=== PATIENT | female | born 2000 | race Caucasian/White ===

== ENCOUNTER 2024-04-30 19:28 | Emergency (ER) | payer OTHER, SELFPAY ==
[2024-04-30 19:32] VITALS: BP 143/93; BMI 28.4
[2024-04-30 19:55] LABS: % Basophils 0.3 % (0-2); % Eosinophils 0.2 % (0-6); % Immature Granulocytes 0.3 % (0-0.5); % Lymphocytes 14.1 % (20.5-51.1); % Monocytes 3.7 % (1.7-9.3); % Neutrophils 81.4 % (42.2-75.2); Absolute Lymphocytes 1.4 10^3/uL (1.2-3.4); Absolute Monocytes 0.4 10^3/uL (0.1-0.6); Absolute Neutrophils 8.3 10^3/uL (1.4-6.5); Hematocrit 34.1 % (37.0-47.0); Mean Corp Hgb Conc. 35.2 g/dL (33.0-37.0); Mean Corpuscular Hgb 29.9 pg (27.0-31.0); Mean Platelet Volume 9.7 fL (7.4-10.4); Nucleated Red Blood Cells % 0 %; Platelet Count 336 10^3/uL (130-400); Red Blood Cell Count 4.01 10^6/uL (4.20-5.40); Red Cell Dist. Width 12.8 % (11.5-14.5); White Blood Cell Count 10.2 10^3/uL (4.8-10.8)
[2024-04-30 20:19] VITALS: BMI 29.3
[2024-04-30 20:20] LABS: Troponin I < 0.012 ng/ml
[2024-04-30 20:39] LABS: HCG, Serum Qualitative Screen Negative
[2024-04-30 20:43] LABS: ALT (SGPT) < 10 U/L (0-35); AST (SGOT) 19 U/L (14-36); Albumin 4.7 g/dl (3.5-5.0); Alkaline Phosphatase 56 U/L (38-126); Blood Urea Nitrogen 9 mg/dl (7-17); Carbon Dioxide 22 mmol/L (22-30); Chloride 104 mmol/L (98-107); Estimated Creatinine Clearance 109 ml/min; Glucose 115 mg/dl (70-99); Sodium 140 mmol/L (135-145); Total Bilirubin 0.5 mg/dl (0.2-1.3); eGFR > 60.00
[2024-04-30 21:00] VITALS: BP 123/69
--- NOTE | 2024-04-30 21:30 | ED.GENMED ---
History of Present Illness
General
Chief Complaint: Chest Pain
Source: patient
Exam Limitations: none
Time Seen by Provider: 04/30/24 20:37
History of Present Illness
History of Present Illness:
This is a 24 year old female that comes in with c/o left sided chest pain and her BP going up and down. States that this started a few hours ago when she was just sitting doing homework. States that she was nauseated and had diarrhea. States that
she was also lightheaded when she stood up. Denies any fever, chills, SOB, abd pain, vomiting, headache, urinary burning.
Past History
Past History
ED Past Medical History: Psychiatric (Anxiety, Depression, Panic disorder) and Other (ADHD)
ED Past Surgical History: None
Social History
Tobacco: Non-smoker (Use to Vap)
Alcohol: Occasional
Personal: Single
Living: with roommate
Employment: Student
Review of Systems
Review of Systems
All Other Systems: ROS reviewed and negative except as documented in HPI and ROS
Constitutional: Reports no symptoms; Denies fever or chills
EENT: Reports no symptoms
Respiratory: Reports no symptoms; Denies cough or trouble breathing
Cardiac: Reports chest pain
ABD/GI: Reports nausea and diarrhea; Denies abdominal pain or vomiting
: Reports no symptoms; Denies dysuria, frequency or urgency
Musculoskeletal: Reports no symptoms
Skin: Reports no symptoms
Neurological: Reports dizzy (when she stands up); Denies headache
Psychiatric: Reports no symptoms
Phy Exam
General Physical Exam
General Presentation: mild distress
General age: appears stated age
General Skin: warm, dry and pale
General Habitus: normal
General Mental: alert
General Hydration: dry mucous membranes
ENT Exam
ENT Exam: TM's normal, pharynx normal and neck supple
Eye Exam
Eye Exam: EOMI
Cardiovascular Exam
Cardiovascular Exam: regular rate/rhythm, no edema and normal peripheral pulses
Pulmonary Exam
Pulmonary Exam: lungs clear, no respiratory distress, no rales, chest non tender, no crackles, no rhonchi, no wheezing and no cough
Gastrointestinal Exam
Gastrointestinal Exam: normal bowel sounds, non tender, soft, no organomegaly, no pulsatile mass and non distended
Musculoskeletal Exam
Musculoskeletal Exam: full ROM and no edema
Skin Exam
Skin Exam: normal color, warm/dry, no rash and no petechia
Psychiatric Exam
Psychiatric Exam: normal mood/affect
Scores
Heart Score for Chest Pain Patients
STEMI patient?: No
History: Slightly or Non-Suspicious
ECG: Normal
Age: </= 45 years
Risk Factors: No Risk Factors
Troponin: </= Normal Limit
Heart Score for Chest Pain Patients: 0
Heart Score Risk: 2.5% MACE over next 6 weeks
Course
Orders/Labs/Results
Orders:
Orders
04/30/24 19:32
Electrocardiogram (*1) Urgent
Reason for Study: Chest Pain
EKG- Treatment ONCE
04/30/24 19:42
Cardiac Monitoring- Treatment ONCE
CXR2 [CR Chest - 2 Views ] Urgent
Comment:
Reason For Exam: chest pain
04/30/24 19:43
Test Result ONCE
04/30/24 19:48
Complete Blood Count/With Diff Urgent
Troponin I Urgent
04/30/24 20:14
Comprehensive Metabolic Panel Urgent
HCG, Serum Qualitative Screen Urgent
04/30/24 22:01
Troponin I Urgent
Abnormal Lab Results
04/30/24 04/30/24
19:48 20:14
RBC 4.01 L 10^6/uL
(4.20-5.40)
Hct 34.1 L %
(37.0-47.0)
Absolute Neuts (auto) 8.3 H 10^3/uL
(1.4-6.5)
Neutrophils % 81.4 H %
(42.2-75.2)
Lymphocytes % 14.1 L %
(20.5-51.1)
Glucose 115 H mg/dl
(70-99)
04/30/24 19:48
04/30/24 20:14
Glucose nonfasting. Troponin <0.012, HCG negative,
second Troponin <0.012
Vital Signs
Initial and Last Documented VS:
Initial Vital Signs
Temp Pulse Resp BP Pulse Ox
98.4 F 118 22 143/93 99
04/30/24 19:32 04/30/24 19:32 04/30/24 19:32 04/30/24 19:32 04/30/24 19:32
Last Documented Vital Signs
Temp Pulse Resp BP Pulse Ox
98.4 F 78 20 120/77 100
04/30/24 19:32 04/30/24 22:30 04/30/24 22:30 04/30/24 22:00 04/30/24 22:30
MDM/Problems Addressed
Differential Diagnosis Includes:
Anxiety, Panic attacts
MDM/Problems Addressed:
This is a 24 year old female that comes in with c/o chest pain. States that she also was nauseated and had diarrhea. States that she was lightheaded when she stood up.
Will check labs. Chest x-ray.
Back into see patient. Explained that her second Troponin is also normal. Explained that this may be due to her anxiety. Was studying and states that she has a test coming up. Will discharge home.
Chronic conditions affecting care: Psychiatric illness
Acute Exacerbation and/or Progression of Chronic Illness: Psychiatric illness
*Radiology
Radiology exam reviewed: radiology read reviewed (Chest-No acute cardiopulmonary process)
*Pulse Oximetry
Patient hypoxic: no
*EKG
Interpreted by ED Provider?: Yes
Heart Rate: 96
Rate: normal
Rhythm: sinus
[place]: normal axis
Interval: normal interval
QRS Pattern: normal QRS
Ischemia: no ischemia
*Bobbin Doffer Interpretation
Rate: tachycardiac
Heart Rate: 106
*Critical Care Note
Total Time (30-74mins, 75-104mins- exclusive of procedures): Not Applicable
ED Attending Note
-
Portions of this chart may have been created with voice recognition software.� Occasional wrong word or��sound alike� substitutions may have occurred due to the inherent limitations of voice recognition software.
Discharge Plan
Departure
Patient Disposition: Home (Routine Discharge)
Date of Disposition: 04/30/24
Time of Disposition: 22:46
Patient with high blood pressure during this ER visit?: No
Condition: Good
Covid-19: Not Applicable
Discharge Problem:
Anxiety
Instructions: Anxiety, Adult ED, Chest Pain PCP Follow Up
Prescriptions:
No Action
sertraline 100 mg Tablet
100 mg PO DAILY
methylphenidate HCl [Concerta] 36 mg Tablet Extended Release 24hr
36 mg PO DAILY
Referrals:
PRIVATE,PHYSICIAN [Family Provider] - Call in 1-3 days for appt
Activity Restrictions/Additional Instructions:
As discussed, your blood work is normal along with both Troponin's and your chest x-ray. Please follow up with your family doctor. IF YOU HAVE ANY OTHER CONCERNS PLEASE RETURN TO THE EMERGENCY ROOM.
Interventions
Interventions:
*Risk Screen - Suicide Last Done: 04/30/24 19:32
*General Assessment Last Done: 04/30/24 19:32
*Neglect/Abuse Screening Last Done: 04/30/24 19:32
ED- Fall Risk Assessment Last Done: 04/30/24 19:32
*ED COVID-19 Vaccine History Last Done: 04/30/24 19:32
*Nursing Disposition Last Done: 04/30/24 22:43
ED- Cardiac Assessment Last Done: 04/30/24 20:19
Discharge Date and Time
Print Language: GERMAN
[2024-04-30 21:40] VITALS: BP 111/77
[2024-04-30 22:00] VITALS: BP 120/77
[2024-04-30 22:28] LABS: Troponin I < 0.012 ng/ml
== END 2024-04-30 22:50 | disposition home or self-care (01) ==
LOC: EMR 19:28
PROVIDERS: Clinical Nurse Specialist Family Health; Emergency Medicine; EMERGENCY PHYSICIAN Emergency Medicine
DX: F41.9 Anxiety disorder, unspecified (principal); R07.89 Other chest pain; R11.0 Nausea; R19.7 Diarrhea, unspecified; R42 Dizziness and giddiness; F32.A Depression, unspecified; F41.0 Panic disorder [episodic paroxysmal anxiety]; F90.9 Attention-deficit hyperactivity disorder, unspecified type
CPT/HCPCS: 99283; 71046; 80053; 84484; 84703; 85025; 93005